=== PATIENT | female | born 1985 ===

== ENCOUNTER 2023-11-01 05:42 | Day surgery (SDC) | payer OTHER ==
[2023-11-01] MEDS ORDERED: CEFTRIAXONE SODIUM 2,000 MG VIAL ONE (07:51)
[2023-11-01] MEDS ORDERED: METRONIDAZOLE/SODIUM CHLORIDE 500 MG/100 ML PIGGYBACK IV ONE (07:51)
[2023-11-01] MEDS ORDERED: POVIDONE-IODINE 118 ML BOTT TOP ONE (08:15)
[2023-11-01] MEDS ORDERED: DIBUCAINE 30 GM TUBE ONE (08:15)
[2023-11-01] MEDS ORDERED: HEMOSTATIC MATRIX 1 KIT KIT TOP ONE (08:16)
[2023-11-01] MEDS ORDERED: TAMSULOSIN HCL 0.4 MG CAP PO ONE ×2 (09:30→10:30)
[2023-11-01] MEDS ORDERED: OXYC1TAB9 PO (10:38)
== END 2023-11-01 14:10 | disposition home or self-care (01) ==
LOC: CIR.AMB 05:42
PROVIDERS: ATTEND Surgery
DX: K64.2 Third degree hemorrhoids (principal); K64.4 Residual hemorrhoidal skin tags; K60.1 Chronic anal fissure; K62.89 Other specified diseases of anus and rectum; K62.5 Hemorrhage of anus and rectum